=== PATIENT | female | born 1960 | race Caucasian/White ===

== ENCOUNTER 2023-02-20 08:21 | Inpatient (IN) ==
[~2023-02-20 08:21] MED LIST: Buffered Lidocaine 1% SYRIN 1 ml INTRADERM ONE; Lactated Ringers 1000 ml BAG 1,000 ML IV SCH; Naloxone 0.4 mg VIAL 0.4 mg/ml 1 ml VIAL IV PRN; Ondansetron 4 mg VIAL 2 MG/ML 2 ml VIAL IV PRN; Prochlorperazine 5 mg/ml 2 ml VIAL (10 mg) IV PRN; ceFAZolin 1 GM ADVAN 1 GM in NS 0.9% 50 ML 50 ML IVPB SCH
[2023-02-20] MEDS ORDERED: Rocuronium 50 mg VIAL 10 mg/ml 5 ml VIAL (50 mg) ONE (08:27)
[2023-02-20] MEDS ORDERED: Propofol 10 MG/ML 20 ML BTL ONE ×2 (08:29→11:59)
[2023-02-20] MEDS ORDERED: fentaNYL 100 mcg/2 ml 50 MCG/ML VIAL ONE ×3 (08:29→18:42)
[2023-02-20] MEDS ORDERED: Midazolam 2 mg/2 ml VIAL 1 mg/ml 2 ml VIAL (2 mg) ONE ×2 (08:29→13:12)
[2023-02-20] MEDS ORDERED: ceFAZolin 2 GM in NS PREMIX 2 GM/100 ML BAG IVPB ONE (09:09)
[2023-02-20 09:21] LABS: Rapid COVID-19 Molecular Undetected (Undetected)
[2023-02-20] MEDS ORDERED: Lidocaine 2% PF 5 ML VIAL ONE ×2 (10:22→11:59)
[2023-02-20] MEDS ORDERED: ROPIVACAINE 5 MG/ML 30 ML BTL (0.5%) ONE (10:59)
[2023-02-20] MEDS ORDERED: fentaNYL 250 mcg/5 ml 50 MCG/ML 5 ml VIAL (250 MCG) ONE (11:59)
[2023-02-20] MEDS ORDERED: Ketamine HCL 50 mg/ml 10 ml VIAL (500 MG) ONE (11:59)
[2023-02-20] MEDS ORDERED: Ondansetron 4 mg VIAL 2 MG/ML 2 ml VIAL IV PRN (12:48)
[2023-02-20] MEDS ORDERED: Lactulose 30 ml UDC PO PRN (12:48)
[2023-02-20] MEDS ORDERED: Magnesium Hydroxide LIQ 30 ML UDC PO PRN (12:48)
[2023-02-20] MEDS ORDERED: Morphine 2 MG/ML SYRINGE IV PRN (12:48)
[2023-02-20] MEDS ORDERED: Ondansetron ODT 4 mg TAB 4 MG TAB PO PRN (12:48)
[2023-02-20] MEDS ORDERED: Lactated Ringers 1000 ml BAG 1,000 ML IV SCH (13:00)
[2023-02-20] MEDS ORDERED: Albuterol HFA INHALER 8 gm MDI INH PRN (13:09)
[2023-02-20] MEDS ORDERED: HYDROmorphone 0.5 MG/0.5 ML SYRINGE ONE (16:31)
[2023-02-20] MEDS ORDERED: Dexamethasone IV 4 MG/ML VIAL 1 ml VIAL ONE (16:39)
[2023-02-20] MEDS ORDERED: Ondansetron 4 mg VIAL 2 MG/ML 2 ml VIAL ONE (16:39)
[2023-02-20] MEDS ORDERED: Tranexamic Acid 1,000 MG/10 ML SDV ONE (17:02)
[2023-02-20] MEDS ORDERED: HYDROmorphone 1 MG/1 ML SYRINGE ONE (19:08)
[2023-02-20] MEDS: HYDROmorphone 1 MG/1 ML SYRINGE IV PRN ×5 (19:10→19:44)
[2023-02-20] MEDS ORDERED: Nicotine GUM 4MG FRUIT FLAVOR PO PRN (20:31)
[2023-02-20] MEDS ORDERED: Nicotine Lozenge mini 4 MG LOZNG.MINI MT PRN (20:31)
[2023-02-20] MEDS ORDERED: Nicotine GUM 4MG FRUIT FLAVOR PO ONE (21:32)
[2023-02-20] MEDS: Magnesium Hydroxide LIQ 30 ML UDC PO SCH (21:46)
[2023-02-20] MEDS: CMCS: Fenofibrate 145 mg TAB (NF) PO SCH ×2 (21:46→22:54)
[2023-02-20] MEDS: PANCRELIPASE 36000 UNIT PO SCH ×2 (22:11→22:44)
[2023-02-20] MEDS: ceFAZolin 1 GM ADVAN 1 GM in NS 0.9% 50 ML 50 ML IVPB SCH (23:38)
[2023-02-21 06:54] LABS: Hematocrit 28.2 % (35-45); Hemoglobin 9.9 g/dL (11.5-14.3); Mean Platelet Volume 6.9 fL (7.5-11.2); Platelet Count 417 10^3/uL (150-450)
[2023-02-21 07:09] LABS: Calcium 8.4 mg/dL (8.6-10.3); Creatinine, Serum 0.81 mg/dL (0.51-0.95); Potassium 4.2 mmol/L (3.5-5.0); eGFR CKD-EPI 81.5 (>60)
[2023-02-21] MEDS: Magnesium Hydroxide LIQ 30 ML UDC PO SCH (07:54)
[2023-02-21] MEDS: ceFAZolin 1 GM ADVAN 1 GM in NS 0.9% 50 ML 50 ML IVPB SCH (07:55)
[2023-02-21] MEDS ORDERED: Nicotine PATCH 21 MG/24 HR PATCH TRANSDERM SCH (08:00)
[2023-02-21] MEDS: PTO: Pancrelipase 36,000 units (NF) PO SCH ×2 (08:04→12:00)
[2023-02-21] MEDS ORDERED: SPIRIVA Respimat (tiotropium) 2.5 mcg/inh Inhaler INH SCH (09:00)
[2023-02-21] MEDS ORDERED: Vitamin THERAPEUTIC TAB PO SCH (09:00)
[2023-02-21 10:01] VITALS: BP 120/69
== END 2023-02-21 13:52 | disposition home or self-care (01) | DRG 301 ==
LOC: AA 08:21 → SSU 20:02
PROVIDERS: ADMIT Orthopaedic Surgery Adult Reconstructive Orthopaedic Surgery; ATTEND Orthopaedic Surgery Adult Reconstructive Orthopaedic Surgery